=== PATIENT | male | born 1965 | race Caucasian/White ===

== ENCOUNTER → 2019-02-05 | Outpatient (REF) | payer OTHER ==
[2019-02-05 13:28] LABS: BASO # 0.1 10^3/uL (0.0-0.2); BASO % 0.9 % (0.0-1.0); EOS # 0.2 10^3/uL (0.0-0.50); EOS % 1.9 % (0.0-3.0); HEMATOCRIT 50.3 % (42.0-52.0); HEMOGLOBIN 16.4 g/dl (13.5-17.5); LYMPH # 3.7 10^3/uL (1.5-4.5); LYMPH % 40.6 % (24.0-44.0); MEAN CORPUSCULAR HGB CONC 32.6 g/dl (32.0-36.5); MEAN CORPUSCULAR VOLUME 98.1 fl (80.0-96.0); MONO # 1.1 10^3/uL (0.0-0.8); MONO % 11.7 % (0.0-5.0); NEUTROPHILS % 44.3 % (36.0-66.0); RED BLOOD COUNT 5.13 10^6/uL (4.30-6.10); WHITE BLOOD COUNT 9.1 10^3/uL (4.0-10.0)
[2019-02-05 13:50] LABS: ALBUMIN 3.3 GM/DL (3.2-5.2); ALT/SGPT 50 U/L (12-78); BILIRUBIN,TOTAL 0.3 MG/DL (0.2-1.0); BLOOD UREA NITROGEN 14 MG/DL (7-18); CALCIUM LEVEL 8.6 MG/DL (8.5-10.1); CARBON DIOXIDE LEVEL 26 MEQ/L (21-32); CHLORIDE LEVEL 106 MEQ/L (98-107); CHOLESTEROL LEVEL 223 MG/DL (<200); CHOLESTEROL RISK RATIO 5.186 (<5); CREATININE FOR GFR 1.06 MG/DL (0.70-1.30); FREE T4 0.89 NG/DL (0.76-1.46); GLOMERULAR FILTRATION RATE > 60.0 (>56); GLUCOSE, FASTING 102 MG/DL (70-100); HDL CHOLESTEROL 43 MG/DL (>40); LDL CHOLESTEROL 150 MG/DL (<100); NON-HDL-C 180 MG/DL; POTASSIUM SERUM 4.1 MEQ/L (3.5-5.1); SODIUM LEVEL 140 MEQ/L (136-145); TOTAL PROTEIN 8.3 GM/DL (6.4-8.2); TRIGLYCERIDES LEVEL 151 MG/DL (<150)
[2019-02-05 13:55] LABS: VITAMIN B12 LEVEL 253 PG/ML (247-911)
[2019-02-06 09:53] LABS: HIV 1&2 SCREEN CENTAUR NEGATIVE (NEGATIVE)
== END ==
LOC: M LAB REF 12:39
PROVIDERS: ATTEND Family Medicine Addiction Medicine
DX: R41.3 Other amnesia (principal); I10 Essential (primary) hypertension

== ENCOUNTER → 2019-08-31 | Outpatient (REF) | payer OTHER ==
[2019-08-31 18:06] LABS: CHOLESTEROL RISK RATIO 6.024 (<5); FREE T4 0.99 NG/DL (0.76-1.46); THYROID STIMULATING HORMONE 3.08 uIU/ML (0.358-3.740)
[2019-08-31 18:08] LABS: HEMOGLOBIN A1c 6.5 %
== END ==
LOC: M LAB REF 17:00
PROVIDERS: ATTEND Nurse Practitioner Family
DX: Z00.01 Encounter for general adult medical examination with abnormal findings (principal)

== ENCOUNTER 2020-06-18 16:09 | Emergency (ER) | payer OTHER ==
[~2020-06-18] VITALS: Ht 175.3 cm; Wt 115.5 kg
[2020-06-18] MEDS ORDERED: AMLO1TAB24 (16:27)
[2020-06-18] MEDS ORDERED: BOOSTRIX/ADACEL VACCINE (DIPHTH/PERTUSS/ACELL/TETANUS) 0.5ML SYR IM ONE (16:45)
[2020-06-18] MEDS ORDERED: IBUPROFEN 600MG TAB PO ONE (17:45)
[2020-06-18 18:09] VITALS: BP 120/81
== END 2020-06-18 18:11 | disposition home or self-care (01) ==
LOC: EDBD 16:09 → M ED 16:09
DX: S80.811A Abrasion, right lower leg, initial encounter (principal); S80.812A Abrasion, left lower leg, initial encounter; T14.8XXA Other injury of unspecified body region, initial encounter; V00.838A Other accident with motorized mobility scooter, initial encounter; Y92.410 Unspecified street and highway as the place of occurrence of the external cause; G80.9 Cerebral palsy, unspecified; Z79.899 Other long term (current) drug therapy

== ENCOUNTER → 2021-05-16 | Outpatient (CLI) | payer OTHER ==
[~2021-05-16] MED LIST: AMLO1TAB24
--- NOTE | 2021-05-16 10:37 | REP ---
INDICATION: OTHER FORMS OF DYSPNEA COMPARISON: None. TECHNIQUE: PA and lateral. FINDINGS: The mediastinum and cardiac silhouette are normal. The lung ba are clear and without acute consolidation, effusion, or pneumothorax. The skeletal structures are intact and normal. IMPRESSION: No acute cardiopulmonary process. If the patient remains symptomatic consider chest CT for further investigation. <Electronically signed by Andrés Parra > 05/16/21 [id number]
== END ==
LOC: M RAD 10:02
PROVIDERS: ATTEND Nurse Practitioner Family
DX: R06.09 Other forms of dyspnea (principal)

== ENCOUNTER → 2021-06-05 | Outpatient (CLI) | payer OTHER ==
--- NOTE | 2021-06-05 17:05 | REP ---
INDICATION: DYSPNEA ON EXERTION COMPARISON: None. TECHNIQUE: Focal technique without intravenous contrast. This causes exam limitations. FINDINGS: There is a borderline subcarinal lymph node which measures 1.3 cm in short axis dimension. Other prominent but nonenlarged mediastinal lymph nodes are present. There is no gross hilar adenopathy. There are no pleural or pericardial effusions. The imaged upper abdomen shows a nodular surface to the liver with an abnormal left lobe the caudate ratio and a small amount of ascites. The imaged osseous structures are within normal limits for the patient's age. Evaluation of the lung ba shows no abnormal nodules, masses, or opacities. IMPRESSION: 1. Adenopathy as described above. Follow-up with contrast-enhanced CT examination of the chest. 2. Abnormal upper abdomen findings as described above. Does this patient have a history of cirrhosis of the liver? 3. No evidence of acute lung parenchymal disease. <Electronically signed by Lyle Larry > 06/05/21 [id number]
== END ==
LOC: M RAD 16:29
PROVIDERS: ATTEND Nurse Practitioner Family
DX: R06.09 Other forms of dyspnea (principal)

== ENCOUNTER 2021-09-14 22:48 | Emergency (ER) | payer MEDICAID, OTHER ==
[~2021-09-14] VITALS: Ht 177.8 cm; Wt 106.3 kg
[2021-09-15 03:09] VITALS: BP 129/77
--- NOTE | 2021-09-15 07:40 | REPVR ---
PROCEDURE INFORMATION: Exam: XR Chest Exam date and time: 09/15/2021 6:55 AM Age: 55 years old Clinical indication: Shortness of breath; Additional info: Short of breath TECHNIQUE: Imaging protocol: XR of the chest. Views: 2 views. COMPARISON: CR Chest, 2 view PA, Lat 05/16/2021 10:19 AM (report not provided) FINDINGS: Lungs: Unremarkable. No consolidation. Pleural spaces: Unremarkable. No pleural effusion. No pneumothorax. Heart/Mediastinum: The cardiomediastinal silhouette is fairly stable in appearance. Bones/joints: Degenerative changes again involve the spine. IMPRESSION: No evidence for acute pulmonary disease. Electronically signed by: Anders Mendez On 09/15/2021 07:39:40 AM
== END 2021-09-15 07:36 | disposition left against medical advice (07) ==
LOC: M ED 22:48
DX: R06.02 Shortness of breath (principal); I10 Essential (primary) hypertension; K21.9 Gastro-esophageal reflux disease without esophagitis; Z86.16 Personal history of COVID-19; Z91.030 Bee allergy status; Z87.891 Personal history of nicotine dependence

== ENCOUNTER 2021-10-03 21:45 | Inpatient (IN) | payer OTHER ==
[~2021-10-03] VITALS: Ht 175.3 cm; Wt 96.3 kg
[2021-10-03 23:07] LABS: HEMATOCRIT 35.1 % (42.0-52.0); HEMOGLOBIN 12.3 g/dl (13.5-17.5); MEAN CORPUSCULAR HEMOGLOBIN 38.2 pg (27.0-33.0); PLATELET COUNT, AUTOMATED 159 10^3/uL (150-450); RED BLOOD COUNT 3.22 10^6/uL (4.30-6.10); WHITE BLOOD COUNT 12.7 10^3/uL (4.0-10.0)
[2021-10-03 23:18] LABS: INR 1.44
[2021-10-04 00:45] LABS: ALBUMIN 2.4 GM/DL (3.2-5.2); ALT/SGPT 28 U/L (12-78); BILIRUBIN,DIRECT 1.8 MG/DL (0.0-0.2); BILIRUBIN,TOTAL 2.4 MG/DL (0.2-1.0); BLOOD UREA NITROGEN 9 MG/DL (7-18); CARBON DIOXIDE LEVEL 30 MEQ/L (21-32); CHLORIDE LEVEL 102 MEQ/L (98-107); CREATININE FOR GFR 1.03 MG/DL (0.70-1.30); GLOMERULAR FILTRATION RATE > 60.0 (>56); GLUCOSE, FASTING 111 MG/DL (70-100); POTASSIUM SERUM 3.9 MEQ/L (3.5-5.1); SODIUM LEVEL 137 MEQ/L (136-145); TOTAL PROTEIN 7.6 GM/DL (6.4-8.2)
[2021-10-04 03:27] LABS: RSV AMPLIFICATION NEGATIVE (NEGATIVE)
[2021-10-04 04:30] VITALS: BP 122/74
[2021-10-04] MEDS ORDERED: LACT20EL PO (05:42)
[2021-10-04] MEDS ORDERED: PROAAER10 INH (05:42)
[2021-10-04] MEDS ORDERED: NADO20TA PO (05:42)
[2021-10-04] MEDS ORDERED: FURO40TA2 PO (05:42)
[2021-10-04] MEDS ORDERED: SPIR-10 PO (05:42)
[2021-10-04] MEDS ORDERED: BACT400T PO (05:42)
[2021-10-04] MEDS ORDERED: AMLO1TAB24 PO (05:42)
[2021-10-04] MEDS ORDERED: PANT40TA29 PO (05:42)
[2021-10-04] MEDS ORDERED: HOME MED LIST COMPLETE! XX SCH (05:45)
[2021-10-04 06:18] VITALS: BP_SYST 101; BP_SYST 119; BP_DIAS 65; BP_DIAS 75
[2021-10-04] MEDS ORDERED: ALBUTEROL 90 MCG/ACT 8GM HFA INHALER INH PRN (06:35)
[2021-10-04 07:44] LABS: HEMATOCRIT 31.1 % (42.0-52.0); HEMOGLOBIN 10.7 g/dl (13.5-17.5); MEAN CORPUSCULAR HEMOGLOBIN 37.9 pg (27.0-33.0); MEAN CORPUSCULAR HGB CONC 34.4 g/dl (32.0-36.5); MEAN CORPUSCULAR VOLUME 110.3 fl (80.0-96.0); PLATELET COUNT, AUTOMATED 142 10^3/uL (150-450); RED BLOOD COUNT 2.82 10^6/uL (4.30-6.10); WHITE BLOOD COUNT 13.2 10^3/uL (4.0-10.0)
[2021-10-04] MEDS: LACTULOSE 20 GM/30 ML SYRUP UD PO SCH ×4 (09:00→21:47)
[2021-10-04] MEDS ORDERED: amLODIPine 5 MG TAB PO SCH (09:00)
[2021-10-04 09:21] LABS: ATYPICAL LYMPH 4 % (0-5); BASOPHILS 2 % (0-1); EOSINOPHILS 3 % (0-3); LYMPHOCYTES 18 % (16-44); MONOCYTES 8 % (0-5); NEUTROPHILS 65 % (28-66)
[2021-10-04 09:22] LABS: TARGET CELLS 2+
[2021-10-04 09:24] LABS: PLATELET ESTIMATE DECREASED (NORMAL)
[2021-10-04] MEDS: SPIRONOLACTONE 50 MG TAB PO SCH (10:02)
[2021-10-04] MEDS: NADOLOL 20MG TABLET PO SCH (10:03)
[2021-10-04] MEDS: BACTRIM 80MG/400MG TAB PO SCH ×2 (10:05→21:47)
[2021-10-04] MEDS: PANTOPRAZOLE 40MG TAB (PROTONIX) PO SCH ×2 (10:06→21:48)
[2021-10-04] MEDS: FUROSEMIDE 40 MG TAB PO SCH (10:06)
[2021-10-04 14:00] VITALS: BP 100/56
[2021-10-04] MEDS: CYCLOBENZAPRINE 5MG TABLET PO PRN (21:47)
[2021-10-04 22:00] VITALS: BP 104/58
[2021-10-05 05:42] VITALS: BP 100/58
[2021-10-05 06:12] LABS: BASO # 0.1 10^3/uL (0.0-0.2); EOS # 0.3 10^3/uL (0.0-0.5); EOS % 2.9 % (0.0-3.0); HEMATOCRIT 29.3 % (42.0-52.0); HEMOGLOBIN 10.2 g/dl (13.5-17.5); LYMPH # 2.8 10^3/uL (1.5-5.0); LYMPH % 23.8 % (24.0-44.0); MEAN CORPUSCULAR HEMOGLOBIN 37.1 pg (27.0-33.0); MEAN CORPUSCULAR HGB CONC 34.8 g/dl (32.0-36.5); MEAN CORPUSCULAR VOLUME 106.5 fl (80.0-96.0); MONO # 1.7 10^3/uL (0.0-0.8); MONO % 14.5 % (2.0-8.0); NEUTROPHILS # 6.7 10^3/uL (1.5-8.5); PLATELET COUNT, AUTOMATED 139 10^3/uL (150-450); RED BLOOD COUNT 2.75 10^6/uL (4.30-6.10); WHITE BLOOD COUNT 11.7 10^3/uL (4.0-10.0)
[2021-10-05 06:19] LABS: INR 1.53; PROTHROMBIN TIME 18.8 SECONDS (12.7-14.5)
[2021-10-05 06:20] LABS: PARTIAL THROMBOPLASTIN TIME 45.9 SECONDS (25.9-37.0)
[2021-10-05 06:39] LABS: ALBUMIN 2.3 GM/DL (3.2-5.2); ALT/SGPT 28 U/L (12-78); BILIRUBIN,TOTAL 2.8 MG/DL (0.2-1.0); BLOOD UREA NITROGEN 8 MG/DL (7-18); CALCIUM LEVEL 8.2 MG/DL (8.5-10.1); CARBON DIOXIDE LEVEL 29 MEQ/L (21-32); CHLORIDE LEVEL 102 MEQ/L (98-107); CREATININE FOR GFR 0.99 MG/DL (0.70-1.30); GLOMERULAR FILTRATION RATE > 60.0 (>56); GLUCOSE, FASTING 98 MG/DL (70-100); POTASSIUM SERUM 3.8 MEQ/L (3.5-5.1); SODIUM LEVEL 137 MEQ/L (136-145); TOTAL PROTEIN 7.4 GM/DL (6.4-8.2)
[2021-10-05] MEDS: LACTULOSE 20 GM/30 ML SYRUP UD PO SCH ×3 (09:00→21:00)
[2021-10-05] MEDS: NADOLOL 20MG TABLET PO SCH (10:34)
[2021-10-05] MEDS: BACTRIM 80MG/400MG TAB PO SCH ×2 (10:35→21:29)
[2021-10-05] MEDS: PANTOPRAZOLE 40MG TAB (PROTONIX) PO SCH ×2 (10:37→21:30)
[2021-10-05] MEDS: FUROSEMIDE 40 MG TAB PO SCH (10:37)
[2021-10-05] MEDS: SPIRONOLACTONE 50 MG TAB PO SCH (10:38)
[2021-10-05] MEDS: CYCLOBENZAPRINE 5MG TABLET PO PRN (13:09)
[2021-10-05 14:00] VITALS: BP 103/59
[2021-10-05] MEDS: GABAPENTIN 100 MG CAP PO SCH ×2 (16:10→21:29)
[2021-10-05] MEDS ORDERED: PREGABALIN 50 MG CAP (LYRICA) PO SCH (21:00)
[2021-10-05 22:00] VITALS: BP 101/60
[2021-10-06 06:00] VITALS: BP 102/66
[2021-10-06 08:34] LABS: BASO # 0.2 10^3/uL (0.0-0.2); BASO % 1.1 % (0.0-1.0); EOS # 0.4 10^3/uL (0.0-0.5); EOS % 2.7 % (0.0-3.0); HEMATOCRIT 30.1 % (42.0-52.0); HEMOGLOBIN 10.7 g/dl (13.5-17.5); LYMPH # 3.1 10^3/uL (1.5-5.0); LYMPH % 23.6 % (24.0-44.0); MEAN CORPUSCULAR HEMOGLOBIN 37.8 pg (27.0-33.0); MEAN CORPUSCULAR HGB CONC 35.5 g/dl (32.0-36.5); MEAN CORPUSCULAR VOLUME 106.4 fl (80.0-96.0); MONO % 15.8 % (2.0-8.0); NEUTROPHILS # 7.4 10^3/uL (1.5-8.5); PLATELET COUNT, AUTOMATED 150 10^3/uL (150-450); RED BLOOD COUNT 2.83 10^6/uL (4.30-6.10); WHITE BLOOD COUNT 13.2 10^3/uL (4.0-10.0)
[2021-10-06 09:00] LABS: MONO # 2.1 10^3/uL (0.0-0.8)
[2021-10-06] MEDS: LACTULOSE 20 GM/30 ML SYRUP UD PO SCH ×3 (09:00→21:08)
[2021-10-06 09:01] LABS: ALBUMIN 2.4 GM/DL (3.2-5.2); ALT/SGPT 38 U/L (12-78); BILIRUBIN,TOTAL 2.8 MG/DL (0.2-1.0); BLOOD UREA NITROGEN 9 MG/DL (7-18); CALCIUM LEVEL 8.7 MG/DL (8.5-10.1); CARBON DIOXIDE LEVEL 28 MEQ/L (21-32); CHLORIDE LEVEL 100 MEQ/L (98-107); CREATININE FOR GFR 0.98 MG/DL (0.70-1.30); GLOMERULAR FILTRATION RATE > 60.0 (>56); GLUCOSE, FASTING 97 MG/DL (70-100); POTASSIUM SERUM 4.1 MEQ/L (3.5-5.1); SODIUM LEVEL 136 MEQ/L (136-145)
[2021-10-06] MEDS: GABAPENTIN 100 MG CAP PO SCH ×3 (10:03→21:09)
[2021-10-06] MEDS: BACTRIM 80MG/400MG TAB PO SCH ×2 (10:04→21:09)
[2021-10-06] MEDS: SPIRONOLACTONE 50 MG TAB PO SCH (10:04)
[2021-10-06] MEDS: FUROSEMIDE 40 MG TAB PO SCH (10:04)
[2021-10-06] MEDS: PANTOPRAZOLE 40MG TAB (PROTONIX) PO SCH ×2 (10:04→21:09)
[2021-10-06] MEDS: NADOLOL 20MG TABLET PO SCH (10:05)
[2021-10-06 12:38] LABS: APPEARANCE, BODY FLUID HAZY (CLEAR); ASCITES FL COLOR YELLOW (COLORLESS); SOURCE, BODY FLUID ASCITES
[2021-10-06 12:50] LABS: SOURCE, BODY FLUID ALBUMIN ASCITES; SOURCE, BODY FLUID GLUCOSE ASCITES; SOURCE, BODY FLUID TOT PROTEIN ASCITES; TOTAL PROTEIN, BODY FLUID 2.1 G/DL (NOT ESTABLISHED)
[2021-10-06 13:05] LABS: SPEC. GRAVITY BODY FLUIDS 1.015 (NOT ESTABLISHED)
[2021-10-06 14:00] VITALS: BP 116/70
[2021-10-06 21:23] VITALS: BP 111/68
[2021-10-07 06:00] VITALS: BP 101/60
[2021-10-07 07:12] LABS: ALBUMIN 2.4 GM/DL (3.2-5.2); ALT/SGPT 33 U/L (12-78); BILIRUBIN,TOTAL 3.2 MG/DL (0.2-1.0); BLOOD UREA NITROGEN 10 MG/DL (7-18); CALCIUM LEVEL 8.5 MG/DL (8.5-10.1); CARBON DIOXIDE LEVEL 26 MEQ/L (21-32); CHLORIDE LEVEL 102 MEQ/L (98-107); CREATININE FOR GFR 1.11 MG/DL (0.70-1.30); GLOMERULAR FILTRATION RATE > 60.0 (>56); GLUCOSE, FASTING 118 MG/DL (70-100); POTASSIUM SERUM 4.5 MEQ/L (3.5-5.1); SODIUM LEVEL 136 MEQ/L (136-145); TOTAL PROTEIN 8.3 GM/DL (6.4-8.2)
[2021-10-07] MEDS: FUROSEMIDE 40 MG TAB PO SCH (09:00)
[2021-10-07] MEDS: SPIRONOLACTONE 50 MG TAB PO SCH (09:00)
[2021-10-07] MEDS: LACTULOSE 20 GM/30 ML SYRUP UD PO SCH ×3 (09:00→20:00)
[2021-10-07] MEDS: GABAPENTIN 100 MG CAP PO SCH ×3 (09:21→20:00)
[2021-10-07] MEDS: BACTRIM 80MG/400MG TAB PO SCH ×2 (09:21→19:59)
[2021-10-07] MEDS: NADOLOL 20MG TABLET PO SCH (09:21)
[2021-10-07] MEDS: PANTOPRAZOLE 40MG TAB (PROTONIX) PO SCH ×2 (09:22→20:00)
[2021-10-07 14:00] VITALS: BP 94/57
[2021-10-07 14:34] VITALS: BP 92/62
[2021-10-07] MEDS: DIMETHICONE 2% OINTMENT(VANICREAM) 70GM TUBE TOP SCH (20:00)
[2021-10-08 06:00] VITALS: BP 114/71
[2021-10-08] MEDS: LACTULOSE 20 GM/30 ML SYRUP UD PO SCH ×4 (09:00→21:00)
[2021-10-08] MEDS: GABAPENTIN 100 MG CAP PO SCH ×3 (09:17→21:02)
[2021-10-08] MEDS: PANTOPRAZOLE 40MG TAB (PROTONIX) PO SCH ×2 (09:18→21:02)
[2021-10-08] MEDS: BACTRIM 80MG/400MG TAB PO SCH ×2 (09:18→21:02)
[2021-10-08] MEDS: FUROSEMIDE 40 MG TAB PO SCH (09:19)
[2021-10-08] MEDS: NADOLOL 20MG TABLET PO SCH (09:20)
[2021-10-08] MEDS: DIMETHICONE 2% OINTMENT(VANICREAM) 70GM TUBE TOP SCH ×2 (09:21→21:03)
[2021-10-08] MEDS: SPIRONOLACTONE 50 MG TAB PO SCH (09:21)
[2021-10-08] MEDS ORDERED: ACETAMINOPHEN TAB 650MG DOSE (2X325MG) PO PRN (09:55)
[2021-10-08 14:00] VITALS: BP 115/68
[2021-10-09 06:30] VITALS: BP 114/66
[2021-10-09] MEDS: LACTULOSE 20 GM/30 ML SYRUP UD PO SCH ×3 (09:00→21:00)
[2021-10-09] MEDS: GABAPENTIN 100 MG CAP PO SCH ×3 (09:37→21:02)
[2021-10-09] MEDS: DIMETHICONE 2% OINTMENT(VANICREAM) 70GM TUBE TOP SCH ×2 (09:38→21:03)
[2021-10-09] MEDS: NADOLOL 20MG TABLET PO SCH (09:39)
[2021-10-09] MEDS: BACTRIM 80MG/400MG TAB PO SCH ×2 (09:39→21:02)
[2021-10-09] MEDS: FUROSEMIDE 40 MG TAB PO SCH (09:40)
[2021-10-09] MEDS: PANTOPRAZOLE 40MG TAB (PROTONIX) PO SCH ×2 (09:41→21:03)
[2021-10-09] MEDS: SPIRONOLACTONE 50 MG TAB PO SCH (09:41)
[2021-10-10 05:28] VITALS: BP 106/65
[2021-10-10] MEDS: FUROSEMIDE 40 MG TAB PO SCH (08:21)
[2021-10-10] MEDS: SPIRONOLACTONE 50 MG TAB PO SCH (08:21)
[2021-10-10] MEDS: LACTULOSE 20 GM/30 ML SYRUP UD PO SCH ×2 (08:22→16:00)
[2021-10-10] MEDS: BACTRIM 80MG/400MG TAB PO SCH (08:23)
[2021-10-10] MEDS: GABAPENTIN 100 MG CAP PO SCH ×2 (08:23→16:22)
[2021-10-10] MEDS: PANTOPRAZOLE 40MG TAB (PROTONIX) PO SCH (08:24)
[2021-10-10] MEDS: DIMETHICONE 2% OINTMENT(VANICREAM) 70GM TUBE TOP SCH (08:24)
[2021-10-10 09:00] VITALS: BP 105/67
[2021-10-10] MEDS: NADOLOL 20MG TABLET PO SCH (09:00)
[2021-10-10] MEDS ORDERED: GABA-1171 PO (10:23)
== END 2021-10-10 17:10 | disposition home health service (06) | DRG 861 ==
LOC: M ED 21:45 → M ED INP 21:46 → ENRESERV 10-04 03:56 → M MSPAV 10-04 04:25 → OBSVTOIN 10-05 14:10
PROVIDERS: ADMIT Family Medicine; ATTEND Family Medicine
PROC: 0W9G3ZZ Drainage of Peritoneal Cavity, Percutaneous Approach (ICD-10-PCS; principal; 2021-10-06 09:25)
DX: R53.1 Weakness (principal); R18.8 Other ascites; E87.2 Acidosis; D41.00 Neoplasm of uncertain behavior of unspecified kidney; I10 Essential (primary) hypertension; D64.9 Anemia, unspecified; K74.60 Unspecified cirrhosis of liver; G62.9 Polyneuropathy, unspecified; K72.90 Hepatic failure, unspecified without coma; J44.9 Chronic obstructive pulmonary disease, unspecified; M06.9 Rheumatoid arthritis, unspecified; F10.11 Alcohol abuse, in remission; Z87.891 Personal history of nicotine dependence; R29.6 Repeated falls; Z79.899 Other long term (current) drug therapy; Z20.822 Contact with and (suspected) exposure to COVID-19; D72.829 Elevated white blood cell count, unspecified; G80.9 Cerebral palsy, unspecified; L85.3 Xerosis cutis

== ENCOUNTER 2021-12-08 09:43 | Emergency (ER) | payer OTHER ==
[~2021-12-08] VITALS: Ht 175.3 cm; Wt 87.6 kg
[~2021-12-08 09:43] MED LIST changes: +AMLO1TAB24 PO; +BACT400T PO; +FURO40TA2 PO; +GABA-1171 PO; +LACT20EL PO; +NADO20TA PO; +PANT40TA29 PO; +PROAAER10 INH; +SPIR-10 PO
[2021-12-08 11:36] LABS: BASO # 0.2 10^3/uL (0.0-0.2); BASO % 1.8 % (0.0-1.0); EOS # 0.8 10^3/uL (0.0-0.5); EOS % 8.7 % (0.0-3.0); HEMATOCRIT 37.7 % (42.0-52.0); HEMOGLOBIN 12.6 g/dl (13.5-17.5); LYMPH # 2.4 10^3/uL (1.5-5.0); LYMPH % 26.8 % (24.0-44.0); MEAN CORPUSCULAR HEMOGLOBIN 36.8 pg (27.0-33.0); MEAN CORPUSCULAR HGB CONC 33.4 g/dl (32.0-36.5); MEAN CORPUSCULAR VOLUME 110.2 fl (80.0-96.0); MONO % 10.9 % (2.0-8.0); NEUTROPHILS # 4.6 10^3/uL (1.5-8.5); NEUTROPHILS % 51.4 % (36.0-66.0); PLATELET COUNT, AUTOMATED 184 10^3/uL (150-450); RED BLOOD COUNT 3.42 10^6/uL (4.30-6.10)
[2021-12-08] MEDS ORDERED: ISOVUE-370 76% 100ML VIAL As Ordered ONE (11:41)
[2021-12-08 11:56] LABS: INR 1.21; PROTHROMBIN TIME 15.7 SECONDS (12.7-14.5)
[2021-12-08 12:04] LABS: ALBUMIN 2.6 GM/DL (3.2-5.2); BILIRUBIN,DIRECT 1.2 MG/DL (0.0-0.2); TOTAL PROTEIN 8.4 GM/DL (6.4-8.2)
[2021-12-08] MEDS ORDERED: SUCR1TA PO (15:50)
[2021-12-08 16:30] VITALS: BP 119/73
== END 2021-12-08 17:15 | disposition home or self-care (01) ==
LOC: M ED 09:43
DX: K74.60 Unspecified cirrhosis of liver (principal); R10.13 Epigastric pain; I10 Essential (primary) hypertension; J44.9 Chronic obstructive pulmonary disease, unspecified; Z87.891 Personal history of nicotine dependence; Z79.899 Other long term (current) drug therapy
CPT/HCPCS: 36415; 74177; 80047; 80076; 83605; 83690; 85025; 85610; 85730; 99284; Q9967

== ENCOUNTER → 2022-01-04 | Outpatient (CLI) | payer OTHER ==
[~2022-01-04] MED LIST changes: +SUCR1TA PO
[2022-01-04 16:43] LABS: ALBUMIN 3.2 GM/DL (3.2-5.2); ALT/SGPT 32 U/L (12-78); BILIRUBIN,TOTAL 2.8 MG/DL (0.2-1.0); BLOOD UREA NITROGEN 17 MG/DL (7-18); CARBON DIOXIDE LEVEL 27 MEQ/L (21-32); CHLORIDE LEVEL 104 MEQ/L (98-107); CREATININE FOR GFR 0.83 MG/DL (0.70-1.30); GLOMERULAR FILTRATION RATE > 60.0 (>56); GLUCOSE, FASTING 82 MG/DL (70-100); POTASSIUM SERUM 4.2 MEQ/L (3.5-5.1); SODIUM LEVEL 137 MEQ/L (136-145); TOTAL PROTEIN 9.4 GM/DL (6.4-8.2)
[2022-01-04 16:55] LABS: INR 1.2; PROTHROMBIN TIME 15.6 SECONDS (12.7-14.5)
== END ==
LOC: M LAB 14:53
PROVIDERS: ATTEND Nurse Practitioner Family
DX: K74.60 Unspecified cirrhosis of liver (principal)

== ENCOUNTER → 2022-02-08 | Outpatient (CLI) | payer OTHER, MEDICAID ==
[~2022-02-08] MED LIST changes: +B-1100TA2 PO; +CONS10SO3 PO; +FOLI1TAB11 PO
== END ==
LOC: M LABSMTC 09:10
PROVIDERS: ATTEND Anesthesiology
DX: Z11.52 Encounter for screening for COVID-19 (principal); Z20.822 Contact with and (suspected) exposure to COVID-19

== ENCOUNTER 2022-02-13 08:17 | Day surgery (SDC) | payer OTHER ==
[~2022-02-13] VITALS: Ht 175.3 cm; Wt 90.7 kg
[~2022-02-13 08:17] MED LIST changes: +NS 1,000 ML IV ONE
[2022-02-13] MEDS ORDERED: propofoL 200 MG/20 ML VIAL As Ordered ONE ×2 (10:33→10:48)
[2022-02-13] MEDS ORDERED: fentaNYL 100 MCG/2 ML INJECTION As Ordered ONE (10:33)
[2022-02-13] MEDS ORDERED: LIDOCAINE 2% 100MG/5ML SDV (FOR ANES.) As Ordered ONE (10:33)
[2022-02-13] MEDS ORDERED: ONDANSETRON 4MG/2ML VIAL As Ordered ONE (11:06)
[2022-02-13 12:05] VITALS: BP 132/74
== END 2022-02-13 15:56 | disposition home or self-care (01) ==
LOC: M OPP 08:17
PROVIDERS: ATTEND Internal Medicine Gastroenterology
DX: I85.01 Esophageal varices with bleeding (principal); K76.6 Portal hypertension; K31.89 Other diseases of stomach and duodenum; K29.70 Gastritis, unspecified, without bleeding; R12 Heartburn; Z79.899 Other long term (current) drug therapy; Z87.891 Personal history of nicotine dependence
CPT/HCPCS: 43239; 43244; 88305; J2405; J3010

== ENCOUNTER → 2022-05-30 | Outpatient (CLI) | payer OTHER ==
[~2022-05-30] MED LIST changes: +ALBU8.5H INH; +ATOR1TAB21 PO; +HYDR-3363 PO; +MELA5TAB47 PO; -NS 1,000 ML IV ONE
== END ==
LOC: M LABSMTC 10:32
PROVIDERS: ATTEND Anesthesiology
DX: Z01.818 Encounter for other preprocedural examination (principal); Z11.52 Encounter for screening for COVID-19

== ENCOUNTER 2022-06-04 10:04 | Day surgery (SDC) | payer OTHER ==
[~2022-06-04] VITALS: Ht 175.3 cm; Wt 78.9 kg
[~2022-06-04 10:04] MED LIST changes: +NS 1,000 ML IV ONE
[2022-06-04] MEDS ORDERED: propofoL 200 MG/20 ML VIAL As Ordered ONE ×2 (11:34→12:01)
[2022-06-04] MEDS ORDERED: fentaNYL 100 MCG/2 ML INJECTION As Ordered ONE (11:34)
[2022-06-04] MEDS ORDERED: LIDOCAINE 2% 100MG/5ML SDV (FOR ANES.) As Ordered ONE (11:34)
[2022-06-04 12:40] VITALS: BP 144/82
== END 2022-06-04 16:00 | disposition home or self-care (01) ==
LOC: M OPP 10:04
PROVIDERS: ATTEND Internal Medicine Gastroenterology
DX: I85.00 Esophageal varices without bleeding (principal); K29.70 Gastritis, unspecified, without bleeding; Z79.02 Long term (current) use of antithrombotics/antiplatelets; Z79.51 Long term (current) use of inhaled steroids; Z79.891 Long term (current) use of opiate analgesic; Z79.899 Other long term (current) drug therapy; I10 Essential (primary) hypertension; F32.9 Major depressive disorder, single episode, unspecified; F41.9 Anxiety disorder, unspecified; E03.9 Hypothyroidism, unspecified; J44.9 Chronic obstructive pulmonary disease, unspecified; K74.60 Unspecified cirrhosis of liver; G80.9 Cerebral palsy, unspecified
CPT/HCPCS: 43239; 88305; J3010

== ENCOUNTER → 2022-07-30 | Outpatient (REF) | payer OTHER ==
[~2022-07-30] MED LIST changes: -NS 1,000 ML IV ONE
[2022-07-30 12:47] LABS: BASO # 0.1 10^3/uL (0.0-0.2); BASO % 1.4 % (0.0-1.0); EOS # 0.6 10^3/uL (0.0-0.5); EOS % 6.9 % (0.0-3.0); HEMATOCRIT 36.7 % (42.0-52.0); HEMOGLOBIN 12.5 g/dl (13.5-17.5); LYMPH # 1.8 10^3/uL (1.5-5.0); MEAN CORPUSCULAR HEMOGLOBIN 34.8 pg (27.0-33.0); MEAN CORPUSCULAR HGB CONC 34.1 g/dl (32.0-36.5); MEAN CORPUSCULAR VOLUME 102.2 fl (80.0-96.0); MONO # 1.3 10^3/uL (0.0-0.8); MONO % 14.4 % (2.0-8.0); NEUTROPHILS # 5.2 10^3/uL (1.5-8.5); PLATELET COUNT, AUTOMATED 137 10^3/uL (150-450); RED BLOOD COUNT 3.59 10^6/uL (4.30-6.10)
== END ==
LOC: M LAB REF 11:17
PROVIDERS: ATTEND Nurse Practitioner Family
DX: E66.3 Overweight (principal)

== ENCOUNTER → 2022-10-02 | Outpatient (CLI) | payer OTHER | LOC: M RAD 08:39 | PROVIDERS: ATTEND Internal Medicine Gastroenterology | DX: K74.60 Unspecified cirrhosis of liver (principal); K80.20 Calculus of gallbladder without cholecystitis without obstruction ==

== ENCOUNTER → 2022-10-11 | Outpatient (CLI) | payer OTHER | LOC: M LAB 09:29 | PROVIDERS: ATTEND Internal Medicine Gastroenterology | DX: K74.60 Unspecified cirrhosis of liver (principal) ==

== ENCOUNTER → 2022-11-08 | Outpatient (REF) | payer OTHER ==
[2022-11-08 17:55] LABS: BASO # 0.2 10^3/uL (0.0-0.2); BASO % 2.1 % (0.0-1.0); EOS # 0.5 10^3/uL (0.0-0.5); EOS % 3.9 % (0.0-3.0); HEMATOCRIT 39.8 % (42.0-52.0); HEMOGLOBIN 13.9 g/dl (13.5-17.5); LYMPH # 2.5 10^3/uL (1.5-5.0); LYMPH % 21.6 % (24.0-44.0); MEAN CORPUSCULAR HEMOGLOBIN 35.7 pg (27.0-33.0); MEAN CORPUSCULAR HGB CONC 34.9 g/dl (32.0-36.5); MEAN CORPUSCULAR VOLUME 102.3 fl (80.0-96.0); MONO # 1.4 10^3/uL (0.0-0.8); MONO % 12.5 % (2.0-8.0); NEUTROPHILS # 6.8 10^3/uL (1.5-8.5); NEUTROPHILS % 58.9 % (36.0-66.0); PLATELET COUNT, AUTOMATED 132 10^3/uL (150-450); RED BLOOD COUNT 3.89 10^6/uL (4.30-6.10); WHITE BLOOD COUNT 11.5 10^3/uL (4.0-10.0)
== END ==
LOC: M LAB REF 16:30
PROVIDERS: ATTEND Nurse Practitioner Family
DX: R89.9 Unspecified abnormal finding in specimens from other organs, systems and tissues (principal)

== ENCOUNTER → 2022-12-25 | Outpatient (REF) | payer OTHER ==
[2022-12-25 19:38] LABS: BASO # 0.1 10^3/uL (0.0-0.2); BASO % 1.2 % (0.0-1.0); EOS # 0.5 10^3/uL (0.0-0.5); HEMATOCRIT 38.9 % (42.0-52.0); HEMOGLOBIN 13.1 g/dl (13.5-17.5); LYMPH # 2.4 10^3/uL (1.5-5.0); LYMPH % 23.1 % (24.0-44.0); MEAN CORPUSCULAR HGB CONC 33.7 g/dl (32.0-36.5); MONO # 1.5 10^3/uL (0.0-0.8); MONO % 14.1 % (2.0-8.0); NEUTROPHILS # 5.9 10^3/uL (1.5-8.5); NEUTROPHILS % 56.3 % (36.0-66.0); PLATELET COUNT, AUTOMATED 110 10^3/uL (150-450); RED BLOOD COUNT 3.74 10^6/uL (4.30-6.10); WHITE BLOOD COUNT 10.4 10^3/uL (4.0-10.0)
[2022-12-25 20:12] LABS: THYROID STIMULATING HORMONE 6.161 uIU/ML (0.55-4.78)
[2022-12-25 20:17] LABS: ALBUMIN 2.9 G/DL (3.2-5.2); CALCIUM LEVEL 8.2 MG/DL (8.5-10.1); CHOLESTEROL RISK RATIO 3.74 (<5); CREATININE FOR GFR 1.35 MG/DL (0.70-1.30); GLOMERULAR FILTRATION RATE 58.2 (>56); LDL CHOLESTEROL 79.4 MG/DL (<100); POTASSIUM SERUM 4.4 MMOL/L (3.5-5.1); TOTAL PROTEIN 8.2 G/DL (5.7-8.2)
[2022-12-25 20:21] LABS: HEMOGLOBIN A1c 5.5 % (4.0-6.0)
== END ==
LOC: M LAB REF 12:00
PROVIDERS: ATTEND Nurse Practitioner Family
DX: Z13.228 Encounter for screening for other metabolic disorders (principal)

== ENCOUNTER 2023-02-12 23:15 | Inpatient (IN) | payer OTHER ==
[~2023-02-12] VITALS: Ht 175.3 cm; Wt 104.1 kg
[2023-02-13] VITALS (10 sets, daily range): BP systolic 131–158; BP diastolic 66–93
[2023-02-13 00:11] LABS: BASO # 0.1 10^3/uL (0.0-0.2); BASO % 1.4 % (0.0-1.0); EOS # 0.4 10^3/uL (0.0-0.5); EOS % 4.3 % (0.0-3.0); HEMATOCRIT 34.6 % (42.0-52.0); HEMOGLOBIN 11.9 g/dl (13.5-17.5); LYMPH # 2.3 10^3/uL (1.5-5.0); LYMPH % 23.1 % (24.0-44.0); MEAN CORPUSCULAR HEMOGLOBIN 35.1 pg (27.0-33.0); MEAN CORPUSCULAR HGB CONC 34.4 g/dl (32.0-36.5); MEAN CORPUSCULAR VOLUME 102.1 fl (80.0-96.0); MONO # 1.5 10^3/uL (0.0-0.8); NEUTROPHILS # 5.5 10^3/uL (1.5-8.5); NEUTROPHILS % 55.9 % (36.0-66.0); PLATELET COUNT, AUTOMATED 115 10^3/uL (150-450); RED BLOOD COUNT 3.39 10^6/uL (4.30-6.10); WHITE BLOOD COUNT 9.8 10^3/uL (4.0-10.0)
[2023-02-13 00:35] LABS: LIPASE 37 U/L (12-53)
[2023-02-13 00:37] LABS: ALKALINE PHOSPHATASE 109 U/L (46-116); ALT/SGPT 23 U/L (7.0-40); AST/SGOT 56 U/L (<34); BILIRUBIN,DIRECT 2.4 MG/DL (<0.4); BILIRUBIN,TOTAL 4.7 MG/DL (0.3-1.2); BLOOD UREA NITROGEN 13 MG/DL (9-23); CALCIUM LEVEL 8.3 MG/DL (8.5-10.1); CARBON DIOXIDE LEVEL 22 MMOL/L (20-31); CHLORIDE LEVEL 106 MMOL/L (98-107); CREATININE FOR GFR 1.03 MG/DL (0.70-1.30); GLOMERULAR FILTRATION RATE > 60.0 (>56); GLUCOSE, FASTING 131 MG/DL (60-100); POTASSIUM SERUM 3.7 MMOL/L (3.5-5.1); SODIUM LEVEL 136 MMOL/L (136-145); TOTAL PROTEIN 8.3 G/DL (5.7-8.2)
[2023-02-13 00:48] LABS: RSV AMPLIFICATION NEGATIVE (NEGATIVE)
[2023-02-13] MEDS ORDERED: NS 1,000 ML IV ONE (01:25)
[2023-02-13 01:59] LABS: INR 1.63; PROTHROMBIN TIME 19.6 SECONDS (12.5-14.5)
[2023-02-13 02:00] LABS: PARTIAL THROMBOPLASTIN TIME 37.8 SECONDS (24.8-34.2)
[2023-02-13] MEDS ORDERED: ONDANSETRON 4MG 2ML VIAL IV ONE (02:05)
[2023-02-13] MEDS ORDERED: ALBU8.5H INH (03:29)
[2023-02-13] MEDS ORDERED: GABA-1171 PO (03:29)
[2023-02-13] MEDS ORDERED: HOME MED LIST COMPLETE! XX SCH (03:30)
[2023-02-13] MEDS ORDERED: MORPHINE 2 MG/ML 1ML VIAL IV PRN (03:45)
[2023-02-13] MEDS ORDERED: cefTRIAXone SOD 1 GM in D5W MINI-BAG PLUS 50 ML IV SCH (04:00)
[2023-02-13] MEDS ORDERED: ALBUTEROL 90 MCG/ACT 8GM HFA INHALER INH PRN (04:25)
[2023-02-13] MEDS ORDERED: cefTRIAXone SOD 2 GM in D5W MINI-BAG PLUS 50 ML IV SCH (07:20)
[2023-02-13] MEDS ORDERED: cefTRIAXone SOD 1 GM in D5W MINI-BAG PLUS 50 ML IV ONE (08:00)
[2023-02-13] MEDS ORDERED: HEPARIN SOD (PORCINE) 5000UNITS/ML 1ML VIAL/SYRINGE SQ SCH (09:00)
[2023-02-13] MEDS: PANTOPRAZOLE 40MG TAB (PROTONIX) PO SCH ×2 (09:23→21:14)
[2023-02-13] MEDS: LACTULOSE 20GM/30ML SYRUP UDC PO SCH ×2 (09:23→21:00)
[2023-02-13] MEDS: GABAPENTIN 100 MG CAP PO SCH ×3 (09:24→21:14)
[2023-02-13] MEDS: ATORVASTATIN 20 MG TAB PO SCH (09:24)
[2023-02-13] MEDS: amLODIPine 5 MG TAB PO SCH (09:25)
[2023-02-13 14:54] LABS: SOURCE, BODY FLUID ALBUMIN ASCITES
[2023-02-13] MEDS: HEPARIN SOD (PORCINE) 5000UNITS/ML 1ML VIAL/SYRINGE SQ SCH ×2 (15:56→21:15)
[2023-02-14 02:51] VITALS: BP_SYST 137; BP_SYST 69; BP_DIAS 69
[2023-02-14] MEDS ORDERED: COMBIVENT RESPIMAT 100-20MCG INHALER 4GM INH PRN (03:00)
[2023-02-14] MEDS: HEPARIN SOD (PORCINE) 5000UNITS/ML 1ML VIAL/SYRINGE SQ SCH ×2 (05:39→15:18)
[2023-02-14 06:00] VITALS: BP 113/60
[2023-02-14 06:21] LABS: BASO # 0.1 10^3/uL (0.0-0.2); EOS # 0.2 10^3/uL (0.0-0.5); EOS % 2.6 % (0.0-3.0); HEMATOCRIT 25.3 % (42.0-52.0); LYMPH # 2.2 10^3/uL (1.5-5.0); LYMPH % 24.6 % (24.0-44.0); MEAN CORPUSCULAR VOLUME 102.8 fl (80.0-96.0); MONO # 1.4 10^3/uL (0.0-0.8); MONO % 15.4 % (2.0-8.0); NEUTROPHILS % 56.1 % (36.0-66.0); RED BLOOD COUNT 2.46 10^6/uL (4.30-6.10)
[2023-02-14 07:00] LABS: ALKALINE PHOSPHATASE 85 U/L (46-116); ALT/SGPT 18 U/L (7.0-40); AST/SGOT 46 U/L (<34); BILIRUBIN,TOTAL 3.1 MG/DL (0.3-1.2); BLOOD UREA NITROGEN 14 MG/DL (9-23); CARBON DIOXIDE LEVEL 22 MMOL/L (20-31); CHLORIDE LEVEL 105 MMOL/L (98-107); CREATININE FOR GFR 1.16 MG/DL (0.70-1.30); GLOMERULAR FILTRATION RATE > 60.0 (>56); GLUCOSE, FASTING 114 MG/DL (60-100); MAGNESIUM LEVEL 1.8 MG/DL (1.8-2.4); POTASSIUM SERUM 3.4 MMOL/L (3.5-5.1); SODIUM LEVEL 137 MMOL/L (136-145); TOTAL PROTEIN 6.6 G/DL (5.7-8.2)
[2023-02-14 07:25] LABS: HEMOGLOBIN 8.6 g/dl (13.5-17.5)
[2023-02-14] MEDS ORDERED: cefTRIAXone SOD 2 GM in D5W MINI-BAG PLUS 50 ML IV SCH (08:00)
[2023-02-14] MEDS: LACTULOSE 20GM/30ML SYRUP UDC PO SCH (08:22)
[2023-02-14] MEDS: PANTOPRAZOLE 40MG TAB (PROTONIX) PO SCH (08:22)
[2023-02-14] MEDS: ATORVASTATIN 20 MG TAB PO SCH (08:22)
[2023-02-14] MEDS: GABAPENTIN 100 MG CAP PO SCH ×2 (08:22→15:17)
[2023-02-14] MEDS: amLODIPine 5 MG TAB PO SCH (08:23)
[2023-02-14 09:39] LABS: APPEARANCE, BODY FLUID CLEAR (CLEAR); ASCITES FL COLOR YELLOW (COLORLESS); SOURCE, BODY FLUID ASCITES
[2023-02-14 10:04] LABS: SOURCE, BODY FLUID GLUCOSE ASCITES
[2023-02-14 10:07] LABS: SOURCE, BODY FLUID TOT PROTEIN ASCITES; TOTAL PROTEIN, BODY FLUID < 2.0 G/DL (NOT ESTABLISHED)
[2023-02-14] MEDS ORDERED: POTASSIUM CHLORIDE 10% LIQ 20MEQ/15ML UDC PO ONE (10:20)
[2023-02-14 14:00] VITALS: BP 133/80
[2023-02-14 14:02] LABS: BASO # 0.1 10^3/uL (0.0-0.2); BASO % 0.7 % (0.0-1.0); EOS # 0.3 10^3/uL (0.0-0.5); EOS % 3.4 % (0.0-3.0); HEMOGLOBIN 9.2 g/dl (13.5-17.5); LYMPH # 2.3 10^3/uL (1.5-5.0); LYMPH % 24.6 % (24.0-44.0); MEAN CORPUSCULAR HEMOGLOBIN 35.8 pg (27.0-33.0); MEAN CORPUSCULAR HGB CONC 34.1 g/dl (32.0-36.5); MEAN CORPUSCULAR VOLUME 105.1 fl (80.0-96.0); MONO % 16.8 % (2.0-8.0); NEUTROPHILS # 5.1 10^3/uL (1.5-8.5); NEUTROPHILS % 54.1 % (36.0-66.0); RED BLOOD COUNT 2.57 10^6/uL (4.30-6.10); WHITE BLOOD COUNT 9.4 10^3/uL (4.0-10.0)
[2023-02-14 14:39] LABS: MONO # 1.6 10^3/uL (0.0-0.8); PLATELET COUNT, AUTOMATED 77 10^3/uL (150-450)
[2023-02-14] MEDS ORDERED: LASI20TA3 PO (14:50)
[2023-02-14] MEDS ORDERED: LACT20EL PO ×2 (14:50→15:27)
[2023-02-14] MEDS ORDERED: SPIR50TA4 PO (14:50)
[2023-02-14] MEDS ORDERED: K-TA10TA2 PO (14:50)
== END 2023-02-14 16:03 | disposition home or self-care (01) | DRG 280 ==
LOC: M ED 23:15 → EDBD 23:15 → M ED INP 02-13 02:23 → M MSPAV 02-13 03:56
PROVIDERS: ADMIT Family Medicine; ATTEND Internal Medicine
PROC: 0W9G3ZZ Drainage of Peritoneal Cavity, Percutaneous Approach (ICD-10-PCS; principal; 2023-02-13 12:00)
DX: K70.31 Alcoholic cirrhosis of liver with ascites (principal); G93.41 Metabolic encephalopathy; E72.20 Disorder of urea cycle metabolism, unspecified; E87.20 Acidosis, unspecified; D64.9 Anemia, unspecified; G62.9 Polyneuropathy, unspecified; I10 Essential (primary) hypertension; J44.9 Chronic obstructive pulmonary disease, unspecified; K42.9 Umbilical hernia without obstruction or gangrene; M54.9 Dorsalgia, unspecified; G89.29 Other chronic pain; E78.00 Pure hypercholesterolemia, unspecified; G47.00 Insomnia, unspecified; E78.5 Hyperlipidemia, unspecified; G80.9 Cerebral palsy, unspecified; K21.9 Gastro-esophageal reflux disease without esophagitis; M79.81 Nontraumatic hematoma of soft tissue; R01.1 Cardiac murmur, unspecified; Z79.899 Other long term (current) drug therapy; Z87.891 Personal history of nicotine dependence; Z91.030 Bee allergy status

== ENCOUNTER → 2023-02-21 | Outpatient (REF) | payer OTHER ==
[~2023-02-21] MED LIST changes: +K-TA10TA2 PO; +LASI20TA3 PO; +SPIR50TA4 PO
[2023-02-21 16:52] LABS: HEMATOCRIT 32.8 % (42.0-52.0); HEMOGLOBIN 11.3 g/dl (13.5-17.5); MEAN CORPUSCULAR HEMOGLOBIN 35.8 pg (27.0-33.0); MEAN CORPUSCULAR VOLUME 103.8 fl (80.0-96.0); RED BLOOD COUNT 3.16 10^6/uL (4.30-6.10); WHITE BLOOD COUNT 11.2 10^3/uL (4.0-10.0)
[2023-02-21 16:53] LABS: BASO # 0.2 10^3/uL (0.0-0.2); BASO % 1.4 % (0.0-1.0); EOS # 0.4 10^3/uL (0.0-0.5); EOS % 3.5 % (0.0-3.0); LYMPH # 1.4 10^3/uL (1.5-5.0); LYMPH % 12.7 % (24.0-44.0); MEAN CORPUSCULAR HGB CONC 34.5 g/dl (32.0-36.5); MONO % 17.6 % (2.0-8.0); NEUTROPHILS # 7.2 10^3/uL (1.5-8.5); NEUTROPHILS % 64.3 % (36.0-66.0); PLATELET COUNT, AUTOMATED 133 10^3/uL (150-450)
[2023-02-21 17:18] LABS: ALBUMIN 3.2 G/DL (3.2-5.2); ALKALINE PHOSPHATASE 100 U/L (46-116); ALT/SGPT 24 U/L (7.0-40); AST/SGOT 53 U/L (<34); BILIRUBIN,TOTAL 5.7 MG/DL (0.3-1.2); BLOOD UREA NITROGEN 15 MG/DL (9-23); CALCIUM LEVEL 8.2 MG/DL (8.5-10.1); CARBON DIOXIDE LEVEL 20 MMOL/L (20-31); CHLORIDE LEVEL 101 MMOL/L (98-107); CREATININE FOR GFR 1.18 MG/DL (0.70-1.30); GLOMERULAR FILTRATION RATE > 60.0 (>56); GLUCOSE, FASTING 189 MG/DL (60-100); SODIUM LEVEL 134 MMOL/L (136-145); TOTAL PROTEIN 8.2 G/DL (5.7-8.2)
[2023-02-21 17:21] LABS: THYROID STIMULATING HORMONE 2.134 uIU/ML (0.55-4.78)
== END ==
LOC: M LAB REF 16:30
PROVIDERS: ATTEND Nurse Practitioner Family
DX: R89.9 Unspecified abnormal finding in specimens from other organs, systems and tissues (principal); R94.6 Abnormal results of thyroid function studies

== ENCOUNTER → 2023-03-05 | Outpatient (CLI) | payer OTHER ==
[2023-03-05 12:59] VITALS: TEMP 99.5
[2023-03-05 13:36] VITALS: BP 154/84; O2SAT 99
[2023-03-05 14:05] VITALS: BP 148/68; O2SAT 99
== END ==
LOC: M IRPRO 12:36
PROVIDERS: ATTEND Internal Medicine Gastroenterology
DX: R18.8 Other ascites (principal); K74.60 Unspecified cirrhosis of liver
CPT/HCPCS: 49083; 96365; P9047

== ENCOUNTER → 2023-04-04 | Outpatient (CLI) | payer OTHER ==
[~2023-04-04] MED LIST changes: -K-TA10TA2 PO; +POTA-165 PO
[2023-04-04 11:30] VITALS: TEMP 98.9
[2023-04-04 12:05] LABS: HEMATOCRIT 31.4 % (42.0-52.0); HEMOGLOBIN 10.9 g/dl (13.5-17.5); MEAN CORPUSCULAR HGB CONC 34.7 g/dl (32.0-36.5); PLATELET COUNT, AUTOMATED 142 10^3/uL (150-450); RED BLOOD COUNT 3.11 10^6/uL (4.30-6.10); WHITE BLOOD COUNT 10.3 10^3/uL (4.0-10.0)
[2023-04-04 12:20] LABS: INR 1.53; PROTHROMBIN TIME 18.7 SECONDS (12.5-14.5)
[2023-04-04 12:21] LABS: PARTIAL THROMBOPLASTIN TIME 37.9 SECONDS (24.8-34.2)
[2023-04-04 13:05] VITALS: BP 114/62; O2SAT 99
[2023-04-04 13:14] VITALS: BP 118/61; O2SAT 99
== END ==
LOC: M IRPRO 11:23
PROVIDERS: ATTEND Internal Medicine Gastroenterology
DX: R18.8 Other ascites (principal); K74.60 Unspecified cirrhosis of liver
CPT/HCPCS: 49083; 85027; 85610; 85730; 96365; P9047

== ENCOUNTER → 2023-05-07 | Outpatient (REF) | payer OTHER ==
[2023-05-07 17:29] LABS: BASO # 0.2 10^3/uL (0.0-0.2); BASO % 1.7 % (0.0-1.0); EOS # 0.4 10^3/uL (0.0-0.5); EOS % 3.8 % (0.0-3.0); HEMATOCRIT 33.2 % (42.0-52.0); HEMOGLOBIN 11.5 g/dl (13.5-17.5); LYMPH # 1.7 10^3/uL (1.5-5.0); LYMPH % 15.7 % (24.0-44.0); MEAN CORPUSCULAR HEMOGLOBIN 34.4 pg (27.0-33.0); MEAN CORPUSCULAR HGB CONC 34.6 g/dl (32.0-36.5); MEAN CORPUSCULAR VOLUME 99.4 fl (80.0-96.0); MONO % 15.6 % (2.0-8.0); NEUTROPHILS # 6.6 10^3/uL (1.5-8.5); NEUTROPHILS % 62.8 % (36.0-66.0); PLATELET COUNT, AUTOMATED 133 10^3/uL (150-450); RED BLOOD COUNT 3.34 10^6/uL (4.30-6.10); WHITE BLOOD COUNT 10.5 10^3/uL (4.0-10.0)
[2023-05-07 17:58] LABS: MONO # 1.6 10^3/uL (0.0-0.8)
== END ==
LOC: M LAB REF 16:42
PROVIDERS: ATTEND Nurse Practitioner Family
DX: D64.9 Anemia, unspecified (principal)

== ENCOUNTER → 2023-05-30 | Outpatient (CLI) | payer OTHER ==
[2023-05-30 10:59] VITALS: BP 123/68; TEMP 98; O2SAT 99
[2023-05-30 11:01] VITALS: BP 123/71; TEMP 97.9; O2SAT 99
[2023-05-30 11:16] VITALS: BP 118/69; TEMP 97
[2023-05-30 11:48] VITALS: BP 120/64; O2SAT 99
== END ==
LOC: M IRPRO 10:04
PROVIDERS: ATTEND Internal Medicine Gastroenterology
DX: K74.60 Unspecified cirrhosis of liver (principal)
CPT/HCPCS: 49083; 96365; P9047

== ENCOUNTER → 2023-07-01 | Outpatient (CLI) | payer OTHER ==
[2023-07-01 11:02] VITALS: BP 130/67; TEMP 98.7; O2SAT 100
[2023-07-01 11:17] VITALS: BP 129/69; TEMP 98.5; O2SAT 100
[2023-07-01 11:21] VITALS: BP 130/72; TEMP 98.2; O2SAT 100
== END ==
LOC: M IRPRO 09:31
PROVIDERS: ATTEND Internal Medicine Gastroenterology
DX: K74.60 Unspecified cirrhosis of liver (principal)
CPT/HCPCS: 49083; 96365; P9047

== ENCOUNTER 2023-07-24 13:02 | Emergency (ER) | payer OTHER ==
[~2023-07-24] VITALS: Ht 175.3 cm; Wt 90.0 kg
[2023-07-24 14:53] VITALS: BP 128/66; TEMP 98.3; O2SAT 99
== END 2023-07-24 15:02 | disposition home or self-care (01) ==
LOC: EDBD 13:02 → M ED 13:02
DX: K70.31 Alcoholic cirrhosis of liver with ascites (principal); Z79.899 Other long term (current) drug therapy; Z91.030 Bee allergy status

== ENCOUNTER → 2023-08-01 | Outpatient (CLI) | payer OTHER ==
[~2023-08-01] VITALS: Ht 175.3 cm; Wt 92.3 kg
[2023-08-01 10:42] VITALS: BP 118/61; TEMP 98.2; O2SAT 100
[2023-08-01 10:47] VITALS: BP 119/61; TEMP 98; O2SAT 100
[2023-08-01 10:51] VITALS: BP 113/61; TEMP 97.9; O2SAT 100
[2023-08-01 10:54] VITALS: BP 115/61; O2SAT 100
== END ==
LOC: M IRPRO 10:05
PROVIDERS: ATTEND Internal Medicine Gastroenterology
DX: K74.60 Unspecified cirrhosis of liver (principal)
CPT/HCPCS: 49083; 96374; P9047

== ENCOUNTER 2023-08-24 06:14 | Inpatient (IN) | payer MEDICAID, OTHER ==
[2023-08-24] VITALS (30 sets, daily range): BP systolic 92–128; BP diastolic 49–58; TEMP 96–98; O2SAT 97–100
[~2023-08-24] VITALS: Ht 175.3 cm; Wt 96.5 kg
[~2023-08-24 06:14] MED LIST changes: +FURO20TA2 PO
[2023-08-24 07:09] LABS: BASO # 0.1 10^3/uL (0.0-0.2); BASO % 0.5 % (0.0-1.0); EOS # 0.1 10^3/uL (0.0-0.5); EOS % 0.7 % (0.0-3.0); LYMPH # 0.8 10^3/uL (1.5-5.0); LYMPH % 7.8 % (24.0-44.0); MEAN CORPUSCULAR HEMOGLOBIN 35.6 pg (27.0-33.0); MEAN CORPUSCULAR HGB CONC 32.7 g/dl (32.0-36.5); MEAN CORPUSCULAR VOLUME 108.9 fl (80.0-96.0); MONO % 21.2 % (2.0-8.0); NEUTROPHILS # 6.7 10^3/uL (1.5-8.5); NEUTROPHILS % 68.9 % (36.0-66.0); WHITE BLOOD COUNT 9.7 10^3/uL (4.0-10.0)
[2023-08-24 07:13] LABS: HEMATOCRIT 19.6 % (42.0-52.0); HEMOGLOBIN 6.4 g/dl (13.5-17.5); MONO # 2.1 10^3/uL (0.0-0.8); PLATELET COUNT, AUTOMATED 95 10^3/uL (150-450)
[2023-08-24 07:40] LABS: ETHYL ALCOHOL (ETHANOL) 0.005 % (0.000-0.010)
[2023-08-24 07:47] LABS: VENOUS BASE EXCESS -14.2 (-2.0-2.0); VENOUS HCO3 11.8 MMOL/L (23.0-27.0); VENOUS O2 SATURATION 89.1 % (60.0-80.0); VENOUS PARTIAL PRESSURE CO2 27.7 mmHg (38.0-50.0); VENOUS PARTIAL PRESSURE O2 61.1 mmHg (30.0-50.0); VENOUS PH 7.246 UNITS (7.330-7.430); VENOUS STANDARD HCO3 13.1 MMOL/L; VENOUS TOTAL CO2 12.6 MMOL/L (24.0-28.0)
[2023-08-24 08:05] LABS: ALBUMIN 2.9 G/DL (3.2-5.2); BILIRUBIN,DIRECT 1.4 MG/DL (<0.4); BILIRUBIN,TOTAL 2.4 MG/DL (0.3-1.2); CALCIUM LEVEL 8.2 MG/DL (8.5-10.1); CK-MB VALUE MASS 3.1 NG/ML (<3.6); CREATININE FOR GFR 4.97 MG/DL (0.70-1.30); FREE T4 0.85 NG/DL (0.89-1.76); GLOMERULAR FILTRATION RATE 12.9 (>56); MAGNESIUM LEVEL 1.9 MG/DL (1.8-2.4); MB/CK RELATIVE INDEX 2.5 (< OR =4); POTASSIUM SERUM 7.7 MMOL/L (3.5-5.1); THYROID STIMULATING HORMONE 10.077 uIU/ML (0.55-4.78); TOTAL PROTEIN 7.1 G/DL (5.7-8.2)
[2023-08-24] MEDS ORDERED: CALCIUM GLUCONATE 1,000MG/10ML VIAL (100MG/ML) IV ONE ×2 (08:05→08:50)
[2023-08-24] MEDS ORDERED: SODIUM BICARBONATE 8.4% INJ 50ML SYRINGE IV ONE (08:05)
[2023-08-24] MEDS ORDERED: DEXTROSE 50% 50ML SYRINGE IV ONE (08:05)
[2023-08-24] MEDS ORDERED: ALBUTEROL SULFATE 2.5MG/0.5ML INH NEB SOLN INH ONE (08:05)
[2023-08-24] MEDS ORDERED: PATIROMER SORBITEX CALCIUM 8.4 GM POWDER PACKET (VELTASSA) PO ONE (08:05)
[2023-08-24] MEDS ORDERED: HumuLIN R (REGULAR) INSULIN (NovoLIN R) **100U/ML** PER UNIT IV ONE (08:05)
[2023-08-24] MEDS ORDERED: NS 500 ML IV ONE (08:10)
[2023-08-24 08:24] LABS: INR 1.63; PROTHROMBIN TIME 18.8 SECONDS (12.5-14.5)
[2023-08-24 08:25] LABS: PARTIAL THROMBOPLASTIN TIME 40.9 SECONDS (24.8-34.2)
[2023-08-24 08:43] LABS: CK-MB VALUE MASS 2.3 NG/ML (<3.6)
[2023-08-24 08:43] LABS: RSV AMPLIFICATION NEGATIVE (NEGATIVE)
[2023-08-24] MEDS ORDERED: MED REC IN PROGRESS XX SCH (08:45)
[2023-08-24 08:46] LABS: MB/CK RELATIVE INDEX 1.88 (< OR =4)
[2023-08-24 08:52] LABS: ABG BASE EXCESS -13.7 (-2.0-2.0); ABG HCO3 11.3 MMOL/L (22.0-26.0); ABG O2 SATURATION 97.2 % (95.0-99.0); ABG PARTIAL PRESSURE CO2 23.1 mmHg (35.0-45.0); ABG STANDARD HCO3 13.5 MMOL/L. (22.0-26.0); ABG pH (ARTERIAL) 7.306 UNITS (7.350-7.450)
[2023-08-24] MEDS ORDERED: PANTOPRAZOLE 40MG VIAL IV ONE (10:00)
[2023-08-24] MEDS ORDERED: OCTREOTIDE ACETATE 100MCG/ML VIAL **IV ADMINISTRATION ONLY IV ONE (10:00)
[2023-08-24] MEDS ORDERED: CIPR500T39 PO (10:28)
[2023-08-24] MEDS ORDERED: HOME MED LIST COMPLETE! XX SCH (10:35)
[2023-08-24] MEDS ORDERED: OCTREOTIDE ACETATE 1,200 MCG in NS 238.8 ML IV SCH (11:00)
[2023-08-24] MEDS: PANTOPRAZOLE SODIUM 40 MG in D5W MINI-BAG PLUS 50 ML IV SCH ×3 (11:22→20:21)
[2023-08-24] MEDS: IPRATROPIUM 0.5MG/ALBUTEROL 2.5MG INH SOL UD 3ML (DUONEB) NEB SCH ×3 (11:40→20:00)
[2023-08-24 11:42] LABS: FREE T4 0.8 NG/DL (0.89-1.76)
[2023-08-24 11:43] LABS: THYROID STIMULATING HORMONE 9.532 uIU/ML (0.55-4.78)
[2023-08-24] MEDS ORDERED: cefTRIAXone SOD 1 GM in D5W MINI-BAG PLUS 50 ML IV SCH (12:00)
[2023-08-24 12:06] LABS: ALBUMIN 2.7 G/DL (3.2-5.2); CALCIUM LEVEL 8.6 MG/DL (8.5-10.1); CREATININE FOR GFR 5.08 MG/DL (0.70-1.30); GLOMERULAR FILTRATION RATE 12.6 (>56); PHOSPHORUS LEVEL 7.7 MG/DL (2.5-4.9); POTASSIUM SERUM 7.1 MMOL/L (3.5-5.1)
[2023-08-24] MEDS: SODIUM BICARBONATE 150 MEQ in STERILE WATER LITER BAG 1,000 ML IV SCH ×2 (14:28→21:02)
[2023-08-24 15:43] LABS: HEMATOCRIT 25.8 % (42.0-52.0); HEMOGLOBIN 8.2 g/dl (13.5-17.5)
[2023-08-24] MEDS ORDERED: MIDODRINE 5 MG TAB PO SCH (16:00)
[2023-08-24] MEDS: LEVOTHYROXINE 100MCG (0.1MG) 5ML SDV PF (SOLUTION FORM) IV SCH (16:09)
[2023-08-24] MEDS ORDERED: propofoL 200 MG/20 ML VIAL As Ordered ONE (18:33)
[2023-08-24] MEDS ORDERED: GLYCOPYRROLATE INJ 0.2 MG/ML 2 ML VIAL As Ordered ONE (18:33)
[2023-08-24] MEDS ORDERED: LIDOCAINE 2% INJ 100 MG/5 ML SYRINGE As Ordered ONE (18:33)
[2023-08-24 19:55] LABS: CALCIUM LEVEL 8.4 MG/DL (8.5-10.1); CREATININE FOR GFR 5.31 MG/DL (0.70-1.30); GLOMERULAR FILTRATION RATE 11.9 (>56); POTASSIUM SERUM 7.7 MMOL/L (3.5-5.1)
[2023-08-24] MEDS ORDERED: ALBUTEROL SULFATE 2.5MG/0.5ML INH NEB SOLN NEB STA (20:00)
[2023-08-24] MEDS ORDERED: HumuLIN R (REGULAR) INSULIN (NovoLIN R) **100U/ML** PER UNIT IV STA (20:00)
[2023-08-24] MEDS ORDERED: DEXTROSE 50% 50ML SYRINGE IV STA (20:00)
[2023-08-24] MEDS ORDERED: CALCIUM GLUCONATE 1,000 MG in D5W MINI-BAG PLUS 100 ML IV SCH (20:00)
[2023-08-24] MEDS ORDERED: ACETAMINOPHEN *IV* 500 MG in IV 1 EA IV ONE (21:00)
[2023-08-24] MEDS ORDERED: LIDOCAINE 5% (LIDODERM) PATCH TD ONE (21:00)
[2023-08-24] MEDS: NYSTATIN 100,000 UNITS/GM TOPICAL PWD 15GM TOP SCH (21:36)
[2023-08-24] MEDS: MIDODRINE 5 MG TAB PO SCH (21:36)
[2023-08-25] VITALS (7 sets, daily range): BP systolic 82–105; BP diastolic 47–54; TEMP 98.1–99.2; O2SAT 96–99
[2023-08-25] MEDS: PANTOPRAZOLE SODIUM 40 MG in D5W MINI-BAG PLUS 50 ML IV SCH ×2 (01:24→05:30)
[2023-08-25 05:15] LABS: HEMATOCRIT 21.5 % (42.0-52.0); HEMOGLOBIN 7.4 g/dl (13.5-17.5); MEAN CORPUSCULAR HEMOGLOBIN 33.2 pg (27.0-33.0); MEAN CORPUSCULAR HGB CONC 34.4 g/dl (32.0-36.5); MEAN CORPUSCULAR VOLUME 96.4 fl (80.0-96.0); RED BLOOD COUNT 2.23 10^6/uL (4.30-6.10); WHITE BLOOD COUNT 9.3 10^3/uL (4.0-10.0)
[2023-08-25] MEDS: SODIUM BICARBONATE 150 MEQ in STERILE WATER LITER BAG 1,000 ML IV SCH (05:23)
[2023-08-25 05:34] LABS: ALBUMIN 2.7 G/DL (3.2-5.2); CALCIUM LEVEL 8.2 MG/DL (8.5-10.1); CREATININE FOR GFR 5.62 MG/DL (0.70-1.30); GLOMERULAR FILTRATION RATE 11.2 (>56); POTASSIUM SERUM 7.5 MMOL/L (3.5-5.1)
[2023-08-25] MEDS ORDERED: HumuLIN R (REGULAR) INSULIN (NovoLIN R) **100U/ML** PER UNIT IV STA (05:37)
[2023-08-25] MEDS ORDERED: DEXTROSE 50% 50ML SYRINGE IV STA (05:37)
[2023-08-25 05:55] LABS: PLATELET COUNT, AUTOMATED 66 10^3/uL (150-450)
[2023-08-25] MEDS ORDERED: CALCIUM GLUCONATE 1,000 MG in D5W MINI-BAG PLUS 100 ML IV ONE (06:00)
[2023-08-25] MEDS ORDERED: TAMSULOSIN 0.4 MG CAP PO ONE (06:00)
[2023-08-25] MEDS ORDERED: ALBUTEROL SULFATE 2.5MG/0.5ML INH NEB SOLN NEB ONE (06:00)
[2023-08-25] MEDS: IPRATROPIUM 0.5MG/ALBUTEROL 2.5MG INH SOL UD 3ML (DUONEB) NEB SCH (07:42)
[2023-08-25] MEDS: LEVOTHYROXINE 100MCG (0.1MG) 5ML SDV PF (SOLUTION FORM) IV SCH (08:04)
[2023-08-25] MEDS: MIDODRINE 5 MG TAB PO SCH (08:04)
[2023-08-25] MEDS: NYSTATIN 100,000 UNITS/GM TOPICAL PWD 15GM TOP SCH ×2 (08:05→21:00)
[2023-08-25] MEDS ORDERED: MORPHINE 10MG/0.5ML ORAL CONCENTRATE SOLUTION U/D SL PRN (09:45)
[2023-08-25] MEDS ORDERED: HYOSCYAMINE SULFATE 0.125 MG SUBL TABLET PO PRN (09:45)
[2023-08-25] MEDS ORDERED: ATROPINE SULFATE 1% OPHTH SOLN 2ML BTL SL PRN (09:45)
[2023-08-25] MEDS ORDERED: ONDANSETRON 4MG ORAL DISINTEGRATING TAB PO PRN (09:45)
[2023-08-25] MEDS ORDERED: BISACODYL 10MG SUPP PR PRN (09:45)
[2023-08-25] MEDS ORDERED: FLEET ENEMA PR PRN (09:45)
[2023-08-25] MEDS ORDERED: SCOPOLAMINE 1MG TRANSDERMAL PATCH TOP PRN (09:45)
[2023-08-25] MEDS: LORazepam 2 MG/ML 1ML VIAL IV PRN ×2 (11:18→15:48)
[2023-08-25] MEDS ORDERED: PATIROMER SORBITEX CALCIUM 8.4 GM POWDER PACKET (VELTASSA) PO SCH (12:00)
[2023-08-25] MEDS ORDERED: TAMSULOSIN 0.4 MG CAP PO SCH (21:00)
[2023-08-26] MEDS ORDERED: TAMSULOSIN 0.4 MG CAP PO ONE (06:00)
[2023-08-26] MEDS: NYSTATIN 100,000 UNITS/GM TOPICAL PWD 15GM TOP SCH ×2 (09:33→21:00)
[2023-08-26] MEDS ORDERED: TAMSULOSIN 0.4 MG CAP PO SCH (21:00)
[2023-08-27] MEDS: NYSTATIN 100,000 UNITS/GM TOPICAL PWD 15GM TOP SCH (09:00)
== END 2023-08-27 09:30 | disposition expired | DRG 280 ==
LOC: M ED 06:14 → M ED INP 09:26 → ENRESERV 10:17 → M ICU 11:09 → M MS5PR 08-25 16:47
PROVIDERS: ADMIT Internal Medicine Pulmonary Disease; ATTEND Student in an Organized Health Care Education/Training Program
PROC: 30233N1 Transfusion of Nonautologous Red Blood Cells into Peripheral Vein, Percutaneous Approach (ICD-10-PCS; principal; 2023-08-24)
DX: K70.31 Alcoholic cirrhosis of liver with ascites (principal); K76.7 Hepatorenal syndrome; I85.11 Secondary esophageal varices with bleeding; G93.41 Metabolic encephalopathy; K76.6 Portal hypertension; D68.9 Coagulation defect, unspecified; E87.20 Acidosis, unspecified; D69.6 Thrombocytopenia, unspecified; E87.1 Hypo-osmolality and hyponatremia; D62 Acute posthemorrhagic anemia; E83.51 Hypocalcemia; G62.9 Polyneuropathy, unspecified; E87.5 Hyperkalemia; K76.82 Hepatic encephalopathy; Z51.5 Encounter for palliative care; J44.9 Chronic obstructive pulmonary disease, unspecified; Z66 Do not resuscitate; E03.9 Hypothyroidism, unspecified; K21.9 Gastro-esophageal reflux disease without esophagitis; I49.9 Cardiac arrhythmia, unspecified; G25.81 Restless legs syndrome; G47.00 Insomnia, unspecified; F41.9 Anxiety disorder, unspecified; E78.5 Hyperlipidemia, unspecified; I12.9 Hypertensive chronic kidney disease with stage 1 through stage 4 chronic kidney disease, or unspecified chronic kidney disease; Z79.899 Other long term (current) drug therapy; K72.00 Acute and subacute hepatic failure without coma